=== PATIENT | female | born 1960 | race Caucasian/White ===

== ENCOUNTER → 2021-07-01 09:09 | Outpatient (BNVA) | payer OTHER, SELFPAY | PROVIDERS: Referring Provider Family Medicine; Visit Provider Physician Assistant | DX: M19.011 Primary osteoarthritis, right shoulder (principal); M25.511 Pain in right shoulder | CPT/HCPCS: 73030 ==

== ENCOUNTER 2022-08-10 15:26 | Outpatient (CLI) | payer OTHER, SELFPAY ==
--- NOTE | 2022-08-10 15:30 | CT_ITS ---
WS: [id number] CT RIGHT SHOULDER, NONCONTRAST. HISTORY: pre op planning Technique: All CT scans at [facility] use at least one of these dose optimization techniques: automated exposure control; mA and/or kV adjustment per patient size (includes targeted exams where dose is matched to clinical indication); or iterative reconstruction. DLP: 312.63 mGy.cm COMPARISON: Radiograph 07/01/2021 Mild AC joint narrowing and hypertrophic osteophytes. Very slight subacromial impingement. No acute f racture. Moderate narrowing of the glenohumeral joint. Subchondral cysts throughout the glenoid. Mild osteophytic ridging around the humeral head causing narrowing of the joint space. No acute fracture. No loose body within the joint space. Mild atrophy of the supraspinatus muscle. No significant joint effusion. No lymph nodes noted within the axilla. CT/CT shoulder RT wo con* [id number] IMPRESSION: 1. Moderate narrowing of the glenohumeral joint with numerous subchondral cyst s along the glenoid. 2. Mild subacromial impingement. 3. Mild muscle atrophy supraspinatus. 4. Mild AC joint arthritis.
== END 2022-08-10 15:27 | disposition home or self-care (01) ==
LOC: RAD 15:32
PROVIDERS: PCP Family Medicine; Visit Provider Orthopaedic Surgery
DX: M19.011 Primary osteoarthritis, right shoulder (principal); M25.711 Osteophyte, right shoulder; M25.811 Other specified joint disorders, right shoulder
CPT/HCPCS: 73200

== ENCOUNTER 2024-11-30 15:15 | Emergency (ER) | payer OTHER, SELFPAY ==
[2024-11-30 15:17] VITALS: BP 149/88; PULSE 82; RESP 15; TEMP 36.5; O2SAT 99; BMI 31.1
--- OUTSIDE RECORDS SUMMARY | 2024-11-30 15:22 | XMS_ITS | Clinical Summary ---
Author Organization [facility] Address [address] [place] [address] Care Team Providers Care Body Fitter Name Role Phone Aimee Payne DO Primary Care Provider Allergies Active Allergy Reactions Criticality Noted Date Comments Cephalexin Nausea and Vomiting High 04/12/2013 Clindamycin Nausea and Vomiting High 11/16/2019 Codeine Itching Low 04/12/2013 Erythromycin Unknown 04/12/2013 Hydrocodone Itching Low 11/01/2019 Oxycodone Headache High 11/16/2019 Oxycodone-Acetaminophen Headache High 11/16/2019 Bhhpnou-Zzf-Njb Reductase Inhibitors Muscle Pain Low 04/25/2013 Medications multivitamin (DAILY-KEN) tablet Take 5 mL by mouth daily. Active Glucosamine Sulfate 1,000 mg Capsule Take 3,000 mg by mouth daily. Active citalopram (CeleXA) 20 mg tablet Take 1 Tablet (20 mg) by mouth daily at bedtime. 90 Tablet 4 0 Active Additional Information Patient taking differently: 10 mgOral DAILY AT BEDTIME, Reported on 05/31/2020 estradioL (ESTRACE) 0.5 mg tabletIndication s:Postmenopausal TAKE 1/2 TABLET BY MOUTH DAILY. 45 Tablet 4 1 Active LORazepam (ATIVAN) 0.5 mg tabletIndication s:Generalized anxiety disorder Take 1 Tablet (0.5 mg) by mouth every 6 hours as needed for Anxiety. 60 Tablet 2 1 Active traMADoL (ULTRAM) 50 mg tabletIndication s:Chronic migraine without aura without status migrainosus, not intractable Take 1 Tablet (50 mg) by mouth every 6 hours as needed for Pain. 30 Tablet 2 1 Active liothyronine (CYTOMEL) 5 mcg TabletIndication s:Hypothyroidism due to acquired atrophy of thyroid TAKE 1 TABLET BY MOUTH DAILY 90 Tablet 4 1 Active pantoprazole (PROTONIX) 20 mg Tablet, Delayed Release (E.C.)Indication s:Gastroesophage al reflux disease without esophagitis TAKE 1 TABLET(20 MG) BY MOUTH DAILY 30 Tablet 11 1 Active levothyroxine (UNITHROID) 88 mcg tabletIndication s:Hypothyroidism due to acquired atrophy of thyroid TAKE 1 TABLET BY MOUTH DAILY. TAKE 1/2-1 HOUR BEFORE BREAKFAST AND 4 HOURS APART FROM ANTACIDS, IRON, AND CALCIUM. 90 Tablet 4 1 Active Active Problems Problem Noted Date Diagnosed Date Mixed hyperlipidemia 04/02/2018 Generalized anxiety disorder 04/02/2018 Postmenopausal 04/02/2018 Persistent hoarseness 04/02/2018 Gastroesophageal reflux disease without esophagi tis 04/02/2018 Counseling for family member of drug abuser 05/30 Stress at home 05/16/2017 Primary hypothyroidism 10/17/2015 Chronic fatigue 10/17/2015 Resolved Problems Problem Noted Date Diagnosed Date Resolved Date Bladder pain 05/16/2017 04/02/2018 Interstitial cystitis (chron ic) without hematuria 05/16/2017 05/16/2017 Overview (05/16/2017): Consider interstitial cystitis workup if bladder pain does not resolve spontaneously Family History Medical History Relation Name Comments Heart Disease Father Biological Stroke Father Biological Thyroid Disease Mother Relation Name Status Comments Father Biological Mother Alive Social History Tobacco Use Types Packs/Day Years Used Date Smoking Tobacco: Never Smokeless Tobacco: Never Tobacco Cessation:Counseling Given: No Alcohol Use Standard Drinks/Week Comments Not Currently 0 (1 standard drink = 0.6 oz pur e alcohol) Comments No Sex and Gender Information Value Date Recorded Sex Assigned at Not on file 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 Gender Identity Not on file Sexual Orientation Not on file Last Filed Vital Signs Vital Sign Reading Time Taken Comments Blood Pressure 148/88 05/31/2020 12:07 PM CDT Pulse 94 05/31/2020 12:07 PM CDT Temperature 36.9 C (98.4 F) 05/31/2020 12:07 PM CDT Respiratory Rate 18 05/31/2020 12:07 PM CDT Oxygen Saturation 96% 05/31/2020 12:07 PM CDT Inhaled Oxygen Concentration - - Weight 98.4 kg (217 lb) 05/31/2020 12:07 PM CDT Height 167.6 cm (5' 6 ) 05/31/2020 12:07 PM CDT Body Mass Index 35.02 05/31/2020 12:07 PM CDT Plan of Treatment Health Maintenance Due Date Last Done Comments Pre-Diabetes and Diabetes Screening 1960 DTAP/TDAP/TD VACCINES (1 - Tdap) 12/18/1979 HPV/Cotest (21-29) 1981 CERVICAL CANCER SCREENING 1990 HPV/Cotest (30-65) 1990 PAP SMEAR 1990 BREAST CANCER SCREENING 2000 COLORECTAL SCREENING 2005 Colorectal Cancer Screening 2005 FIT-DNA Q 3 years 2005 FIT/FOBT Q 1 year 2005 Flex Sig/CT Colonography Q 5 years 2005 ZOSTER VACCINE (1 of 2) 2010 Preventative Visit- Commercial 03/01/2024 INFLUENZA VACCINE (#1) 2024 RSV VACCINE (60+ or ) (1 - 1-dose 75+ series) 12/18/2035 Insurance [address] [place] [address] [facility] [address] [place] [address] RX GENERIC COMMERCIAL Commercial RX GARZA PLANS (INTERNAL) [facility] Internal Plans Advance Directives For more information, please contact: [phone] * Full Code (Latest Code Status on File) Date Activated Date Inactivated Comments 11/01/2019 7:03 AM 11/01/2019 1:03 PM * Full Code Date Activated Date Inactivated Comments 11/01/2019 6:21 AM 11/01/2019 7:03 AM Care Teams Body Fitter Relationship Specialty Start Date End Date Aimee Payne DO [address] [facility] [place] [address] PCP - General Family Practice 03/02/19
--- OUTSIDE RECORDS SUMMARY | 2024-11-30 15:22 | XMS_ITS | Clinical Summary ---
Author Organization [facility] Address [address] [place] [address] Care Team Providers Care Planning Director Name Role Phone Aimee Payne Primary Care Provider Allergies Active Allergy Reactions Criticality Noted Date Comments Cephalexin Nausea and Vomiting High 04/12/2013 Clindamycin Nausea and Vomiting High 11/16/2019 Codeine Itching,Headache Low 04/12/2013 Erythromycin Nausea and Vomiting,Unknown Low 04/12/2013 Hydrocodone Itching,Headache Low 11/01/2019 [place] Oil Nausea and Vomiting Medium 07/20/2022 Oxycodone Headache High 11/16/2019 Oxycodone-Acetaminophen Headache High 11/16/2019 Npyqnna-Mwo-Jrz Reductase Inhibitors Muscle Pain Low 04/25/2013 Medications Glucosamine Sulfate 1,000 mg Capsule Take 3,000 mg by mouth daily. 0 Active TURMERIC ORAL Take by mouth. A ctive KRILL OIL ORAL Take by mouth. Active COLLAGEN MISC by Misc.(Non-Drug; Combo Route) route. Active calcium citrate-vitamin d3 (CITRACAL D MAX) 315 mg-6.25 mcg (250 unit) Tablet Take by mouth daily. Active MAGNESIUM CITRATE ORAL Take by mouth. Ac tive ibuprofen (MOTRIN) 200 mg tablet Take 400 mg by mouth every 6 hours as needed for Pain, Mild. Active acetaminophen (TYLENOL) 500 mg tablet Take 1,000 mg by mouth every 8 hours as needed. Active B.animalis,bifid ,infantis,long (PROBIOTIC 4X ORAL) Take by mouth daily after supper. Active naloxone (NARCAN) 4 mg/spray [place], Non-Aerosol Give one spray in one nostril for opioid overdose and may repeat dose in alternate nostrils every 2-3 minutes until patient is responsive or EMS arrives. 2 Each 11/17/2022 10:40 AM CDT 3 Active pantoprazole (PROTONIX) 20 mg Tablet, Delayed Release (E.C.)Indication s:Gastroesophage al reflux disease without esophagitis TAKE ONE TABLET BY MOUTH DAILY. 100 Tablet 3 5 Active levothyroxine 75 mcg tablet Take 1 Tablet (75 mcg) by mouth daily in the morning. 90 Tablet 2 5 Active DULoxetine (CYMBALTA) 20 mg Capsule, Delayed Release(E.C.) TAKE TWO capsules BY MOUTH daily 180 Capsule 2 5 Active liothyronine (CYTOMEL) 5 mcg TabletIndication s:Hypothyroidism due to acquired atrophy of thyroid TAKE ONE TABLET BY MOUTH DAILY 30 Tablet 9 5 Active estradioL (ESTRACE) 0.5 mg tabletIndication s:Postmenopausal TAKE ONE-HALF (1/2) TABLET DAILY 45 Tablet 4 5 Active LORazepam (ATIVAN) 0.5 mg tabletIndication s:Generalized anxiety disorder Take 1 Tablet (0.5 mg) by mouth 2 times daily as needed for Anxiety. Do not fill until 10/07/24 60 Tablet 5 Active Active Problems Problem Noted Date Diagnosed Date Hypothyroidism due to acquired atrophy of thyroi d 03/11/2024 Recurrent major depressive disorder, in full rem ission 04/11/2023 H/O total shoulder replacement, right 11/16/2022 Primary osteoarthritis of right shoulder 023 Preoperative general physical examination 2022 Anxiety 11/06/2022 Hyponatremia 11/06/2022 Mixed hyperlipidemia 04/02/2018 Persistent hoarseness 04/02/2018 Postmenopausal 04/02/2018 Generalized anxiety disorder 04/02/2018 Gastroesophageal reflux disease without esophagi tis 04/02/2018 Counseling for family member of drug abuser 05/30 Stress at home 05/16/2017 Primary hypothyroidism 10/17/2015 Chronic fatigue 10/17/2015 Resolved Problems Problem Noted Date Diagnosed Date Resolved Date Bladder pain 05/16/2017 04/02/2018 Interstitial cystitis (chron ic) without hematuria 05/16/2017 05/16/2017 Overview (06/26/2020): Consider interstitial cystitis workup if bladder pain does not resolve spontaneously Encounters Date Type Department Care Team Description 10/03/2024 External Device Data STL ABSTRACTION Provider, Abstract 10/03/2024 [facility] [address] [place] [address] Aimee Payne, Generalized anxiety disorder 09/11/2024 [facility] [address] [place] [address] Aimee Payne, Postmenopausal 09/02/2024 [facility] [address] [place] [address] Aimee Payne, Generalized anxiety disorder; Hypothyroidism due to acquired atrophy of thyroid from Last 3 Months Family History Medical History Relation Name Comments Heart Attack Father Biological CO x2, last age 80's Heart Disease Father Biological Heart Disease Maternal Grandmother Thyroid Disease Mother Emi Christensenrp Breast Cancer Neg Hx Relation Name Status Comments Father Biological Maternal Grandmother Mother Emi Gillespie Alive Social History Tobacco Use Types Packs/Day Years Used Date Smoking Tobacco: Never Passive Smoke Exposure: Never Smokeless Tobacco: Never Tobacco Cessation:Counseling Given: Not Answered Alcohol Use Standard Drinks/Week Comments Not Currently 1 (1 standard drink = 0.6 oz pur e alcohol) Feeling Safe Answer Date Recorded Are you in a relationship wi th someone who hurts you emotionally and/or physically? 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 Gender Identity Not on file Sexual Orientation Not on file Last Filed Vital Signs Vital Sign Reading Time Taken Comments Blood Pressure 134/80 03/09/2024 3:20 PM SENIOR PHP WEB DEVELOPER Pulse 112 03/09/2024 3:15 PM SENIOR PHP WEB DEVELOPER Temperature 36.3 C (97.4 F) 03/09/2024 3:15 PM SENIOR PHP WEB DEVELOPER Respiratory Rate 18 05/07/2023 3:43 PM SENIOR PHP WEB DEVELOPER Oxygen Saturation 97% 03/09/2024 3:15 PM SENIOR PHP WEB DEVELOPER Inhaled Oxygen Concentration - - Weight 89.5 kg (197 lb 4 oz) 03/09/2024 3:15 PM SENIOR PHP WEB DEVELOPER Height 167.6 cm (5' 6 ) 03/09/2024 3:15 PM SENIOR PHP WEB DEVELOPER s tated Body Mass Index 31.84 03/09/2024 3:15 PM SENIOR PHP WEB DEVELOPER Plan of Treatment Health Maintenance Due Date Last Done Comments Pre-Diabetes and Diabetes Screening 1960 DTAP/TDAP/TD VACCINES (1 - Tdap) 12/18/1979 HPV/Cotest (21-29) 1981 CERVICAL CANCER SCREENING 1990 HPV/Cotest (30-65) 1990 PAP SMEAR 1990 COLORECTAL SCREENING 2005 FIT/FOBT Q 1 year 2005 Flex Sig/CT Colonography Q 5 years 2005 ZOSTER VACCINE (1 of 2) 2010 Preventative Visit- Commercial 03/01/2024 10/10/2021 BREAST CANCER SCREENING 06/17/2024 06/18/2023, 01/06 INFLUENZA VACCINE (#1) 2024 11/28/2021 Colorectal Cancer Screening 06/10/2027 FIT-DNA Q 3 years 06/10/2027 06/09/2024, 12/25/2021 RSV VACCINE (60+ or ) (1 - 1-dose 75+ series) 12/18/2035 Medical Devices Implanted Type Area Sql Engineer Device Identifier Shelf Expiration Date Model / Serial / Lot Cement Palacos Mv Zirconium Dioxide St Lf Disp [id number] - [id number] Implanted:Qty: 1 on 11/16/2022 by Atif Lala MD at [facility] Cement Right: Shoulder [employer] [id number] 12/29/2026 [id number] / / [id number] Glenoid Aequalis Perform Pgd Crtlc S35 [id number] - [id number] Implanted:Qty: 1 on 11/16/2022 by Atif Lala MD at [facility] Shoulder Right: Shoulder [employer] 11/02/2024 [id number] / / [id number] Comp Head Hum Simpliciti Nucls Sz2 [id number] - [id number] Implanted:Qty: 1 on 11/16/2022 by Atif Lala MD at [facility] Shoulder Right: Shoulder [employer] 09/11/2027 [id number] / / [id number] Head Hum Simpliciti [id number] - [id number] Implanted:Qty: 1 on 11/16/2022 by Atif Lala MD at [facility] Shoulder Right: Shoulder [employer] 07/22/2027 [id number] / / [id number] Explanted Type Area Sql Engineer Device Identifier Shelf Expiration Date Model / Serial / Lot Wireguide Aequalis Perform [id number] - [id number] Explanted:Qty: 1 on 11/16/2022 by Atif Lala MD at [facility] Wire Right: Shoulder [employer] 10/05/2027 [id number] / / [id number] Procedures Procedure Name Priority Date/Time Associated Diagnosis Comments COLON CANCER SCREEN, STOOL DNA Routine 06/09/2024 1:40 PM CDT Encounter for colorectal cancer screening MAMMO 3D JAYLEN SCREEN BILAT W OR WO CAD Routine 06/18/2023 2:57 PM CDT Screening mammogram, encounter for from Last 3 Months or Most Recently Relevant to Health Maintenance Results * COLON CANCER SCREEN, STOOL DNA (06/09/2024 1:40 PM CDT) COLOGUARD RESULT Negative Negative [facility] Comment: NEGATIVE TEST RESULT. A negative Cologuard result indicates a low likelihood that a colorectal cancer (CRC) or advanced adenoma (adenomatous polyps with more advanced pre-malignant features) is present. The chance that a person with a negative Cologuard test has a colorectal cancer is less than 1 in 1500 (negative predictive value >99.9%) or has an advanced adenoma is less than 5.3% (negative predictive value 94.7%). These data are based on a prospective cross-sectional study of 10,000 individuals at average risk for colorectal cancer who were screened with both Cologuard and colonoscopy. (Speedy Nesbitt et al, N Engl J Med 2014;370(14):2423-7634) The normal value (reference range) for this assay is negative. COLOGUARD RE-SCREENING RECOMMENDATION: Periodic colorectal cancer screening is an important part of preventive healthcare for asymptomatic individuals at average risk for colorectal cancer. Following a negative Cologuard result, the [place] Cancer Society and U.S. Multi-Society Task Force screening guidelines recommend a Cologuard re-screening interval of 3 years. References: [place] [employer] Guideline for Colorectal Cancer Screening: https://www.cancer.org/cancer/shgvr-yddzrs-ssjaiw/gxcginnih-lezrojwet-qtxiutk/ac s-rec ommendations.html.; Priyank DK, Vikram SNOW, Rena RichardK, Colorectal Cancer Screening: Recommendations for Physicians and Patients from the U.S. Multi-Society Task Force on Colorectal Cancer Screening , Am J Gastroenterology 2017; 112:5166-3090. TEST DESCRIPTION: Composite algorithmic analysis of stool DNA-biomarkers with hemoglobin immunoassay. Quantitative values of individual biomarkers are not reportable and are not associated with individual biomarker result reference ranges. Cologuard is intended for colorectal cancer screening of adults of either sex, 45 years or older, who are at average-risk for colorectal cancer (CRC). Cologuard has been approved for use by the U.S. FDA. The performance of Cologuard was established in a cross sectional study of average-risk adults aged 50-84. Cologuard performance in patients ages 45 to 49 years was estimated by sub-group analysis of near-age groups. Colonoscopies performed for a positive result may find as the most clinically significant lesion: colorectal cancer [4.0%], advanced adenoma (including sessile serrated polyps greater than or equal to 1cm diameter) [20%] or non- advanced adenoma [31%]; or no colorectal neoplasia [45%]. These estimates are derived from a prospective cross-sectional screening study of 10,000 individuals at average risk for colorectal cancer who were screened with both Cologuard and colonoscopy. (Speedy Bender al, N Engl J Med 2014;370(14):1923-7480.) Cologuard may produce a false negative or false positive result (no colorectal cancer or precancerous polyp present at colonoscopy follow up). A negative Cologuard test result does not guarantee the absence of CRC or advanced adenoma (pre-cancer). The current Cologuard screening interval is every 3 years. ([place] Cancer Society and U.S. Multi-Society Task Force). Cologuard performance data in a 10,000 patient pivotal study using colonoscopy as the reference method can be accessed at the following location: www.Trove/results. Additional description of the Cologuard test process, warnings and precautions can be found at www.Gruvieogplay140rd.com. Stool STOOL SPECIMEN / Unknown 06/09/2024 1:40 PM CDT 06/10/2024 5:31 PM CDT Aimee Payne DO BODY FLUIDS AND STOOLS [facility] CLIA # [id number] [address] [facility], [address] [place] [address] * MAMMO 3D JAYLEN SCREEN BILAT W OR WO CAD (06/18/2023 2:57 PM CDT) Anatomical Region Laterality Modality Breast Bilateral Mammography Impressions 06/25/2023 9:36 AM CDT : No mammographic evidence of malignancy. BI-RADS ASSESSMENT: 1 - Negative RECOMMENDATION: Routine annual screening mammography. Narrative 06/25/2023 9:36 AM CDT EXAM: MAMMO SCRN BILAT 3D JAYLEN W OR WO CAD INDICATION: Screening COMPARISON: 01/06/2022 MAMMO SCRN BILAT 3D JAYLEN W OR WO CAD BREAST COMPOSITION: The breasts are heterogeneously dense, which may obscure small masses. FINDINGS: RIGHT BREAST: There are no suspicious masses, calcifications, or areas of architectural distortion. LEFT BREAST: There are no suspicious masses, calcifications, or areas of architectural distortion. Aimee Payne DO MAMMO ORDERABLES Final Resu lt from Last 3 Months or Most Recently Relevant to Health Maintenance Insurance [employer] [address] [facility] * Guarantor: ETHAN MIRANDA Account Type Relation to Patient Date of Phone Billing Address Personal/Family [address] [place] [address] RX GARZA PLANS (INTERNAL) [facility] Internal Plans RX BENECARD Commercial RX [employer] Advance Directives For more information, please contact: [phone] * Full Code (Latest Code Status on File) Date Activated Date Inactivated Comments 11/16/2022 12:11 PM 11/17/2022 2:14 PM Care Teams Planning Director Relationship Specialty Start Date End Date Aimee Payne DO [address] [place] [address] PCP - General 05/30/20
--- OUTSIDE RECORDS SUMMARY | 2024-11-30 15:22 | XMS_ITS | Encounter Summary ---
Author Organization [facility] Address [address] [place] [address] Care Team Providers Care Lunchroom Monitor Name Role Phone Aimee Payne DO Primary Care Provider Encounter Details Date Type Department Care Team (Late st Contact Info) Description 05/22/2015 Telephone [facility] Medicine [place] [id number] [place] [phone] Brent Forrester, [facility] Social History Tobacco Use Types Packs/Day Years Used Date Smoking Tobacco: Never Smokeless Tobacco: Never Alcohol Use Standard Drinks/Week Comments Not Asked 0 (1 standard drink = 0.6 oz pur e alcohol) Comments No Sex and Gender Information Value Date Recorded Sex Assigned at Not on file 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
== END 2024-11-30 17:15 | disposition left against medical advice (07) ==
PROVIDERS: Emergency Provider Family Medicine; PCP Family Medicine
DX: Z53.21 Procedure and treatment not carried out due to patient leaving prior to being seen by health care provider (principal)